=== PATIENT | female | born 1985 | race Caucasian/White ===

== ENCOUNTER → 2019-04-13 | Outpatient (REF) | payer MEDICARE, MEDICAID | LOC: M SFHCPLAZ 15:51 | PROVIDERS: ATTEND Dermatology | DX: L90.0 Lichen sclerosus et atrophicus (principal) | CPT/HCPCS: 11102; 88305; G0463 ==

== ENCOUNTER → 2019-09-07 | Outpatient (CLI) | payer MEDICARE, MEDICAID | LOC: M PLALAB 10:06 | PROVIDERS: ATTEND Surgery | DX: Z80.3 Family history of malignant neoplasm of breast (principal) ==

== ENCOUNTER → 2019-09-17 | Outpatient (CLI) | payer MEDICARE, MEDICAID ==
--- NOTE | 2019-09-17 16:32 | REP ---
Bilateral digital diagnostic mammography with CAD, 3-D tomography, and focused bilateral breast sonography. History: The patient has a history of bilateral breast lumps, present times 2 years. Comparison is made with prior right breast mammography from November 16, 2017. Findings: Breast parenchyma is heterogeneously dense in a symmetric pattern in the upper outer quadrants. This may inhibit the sensitivity of mammography. Skin markers are affixed to the skin at the site of the palpable lump which projects inferiorly and medially on the right and the left. No mammographic evidence of mass, architectural distortion, or microcalcification is seen in the area of the palpable abnormality in either breast. The remainder of the right and left breast parenchyma are mammographically unremarkable. Right breast is unchanged from comparison mammography. Sonographic findings: Focused bilateral breast sonography is performed. At the site of the palpable lump in the right breast at 4 o'clock region heterogeneous fibroglandular background echotexture is seen. No cyst or mass is observed. In the left breast at 9 o'clock at the site of this palpable lump normal breast parenchyma is observed. Impression: BIRADS category 1 negative findings. Clinical follow-up is advised. BIRADS 1: BI-RADS/ACR category 1 mammogram. Negative Mammogram. This mammogram was interpreted with the aid of an FDA-approved computer-aided detection system. The patient states she had a clinical breast exam in September 2019 The patient letter being requested is m#2 dense. This patient's estimated Tyrer-Cuzick lifetime risk assessment for breast cancer is 17.1 %.
== END ==
LOC: M WHC 13:35
PROVIDERS: ATTEND Surgery
DX: N63.20 Unspecified lump in the left breast, unspecified quadrant (principal); N63.10 Unspecified lump in the right breast, unspecified quadrant; N64.4 Mastodynia; L90.0 Lichen sclerosus et atrophicus
CPT/HCPCS: 76642; 77066; G0279